=== PATIENT | female | born 1970 | race Caucasian/White ===

== ENCOUNTER 2022-07-09 07:00 | Emergency (ER) | payer OTHER ==
[~2022-07-09] VITALS: Ht 175.3 cm; Wt 205.0 kg
[~2022-07-09 07:00] MED LIST: AUGMENTIN875 MG PO; CELEBREX200 MG OR; CELEXA20 M1; CELEXA20 MG OR; EFFEXOR75 MG OR; FLEXERIL OR; GABAPENTIN300 MG; INDOMETHACIN25 MG OR; LISINOPRIL20 MG OR; LISINOPRIL20 MG PO; LORTAB5 PO; NAPROSYN500 MG OR; OXYCODONE30 MG; ROBITUSSIN AC10 ML OR; ZITHROMAX250 MG OR; ZOFRAN ODT4 MG OR
[2022-07-09] MEDS ORDERED: CLINDAMYCIN HY300 MG PO (07:36)
[2022-07-09 07:45] VITALS: BP 164/94
== END 2022-07-09 07:45 | disposition home or self-care (01) ==
LOC: ED 07:00
DX: K08.89 Other specified disorders of teeth and supporting structures (principal); F31.9 Bipolar disorder, unspecified; F41.9 Anxiety disorder, unspecified; F17.200 Nicotine dependence, unspecified, uncomplicated